=== PATIENT | male | born 1955 | race Caucasian/White ===

== ENCOUNTER → 2017-09-06 14:31 | Outpatient (CLI) | payer OTHER, SELFPAY | PROVIDERS: Visit Provider Physician Assistant Surgical | DX: J02.9 Acute pharyngitis, unspecified (principal) | CPT/HCPCS: 87081 ==

== ENCOUNTER → 2017-12-18 17:03 | Outpatient (CLI) | payer OTHER, SELFPAY | PROVIDERS: Family Provider Internal Medicine; PCP Internal Medicine; Visit Provider Internal Medicine | DX: J44.9 Chronic obstructive pulmonary disease, unspecified (principal) | CPT/HCPCS: G0297 ==

== ENCOUNTER → 2018-09-18 06:22 | Outpatient (CLI) | payer OTHER, SELFPAY ==
--- NOTE | 2018-09-18 06:29 | ECHOCS_ITS ---
Reason For Study: EDEMA OF EXTREMITIES Procedure This was a 2D Doppler, Color Flow transthoracic echocardiogram. The study was technically difficult. Due to body habitus. Contrast injection was performed. Exam performed in department. Left Ventricle Normal LV size. Left ventricular systolic function is normal. The estimated ejection fraction is 55 %. Stage 1 diastolic dysfunction. No regional wall motion abnormalities noted. Right Ventricle Normal RV size. Normal systolic function. Atria The left atrium is mildly enlarged. Normal right atrium. Mitral Valve Normal mitral valve. Tricuspid Valve Normal tricuspid valve. Aortic Valve The aortic valve is not well visualized. Pulmonic Valve Normal pulmonic valve. Great Vessels Normal aortic root. The pulmonary artery is normal size. Normal inferior vena cava. Pericardium/Pleural No pericardial effusion. Medication Diluted definity 3.0ml given slow IV push to enhance endocardial definition. MMode/2D Measurements & Calculations LVIDd: 6.3 cm IVSd: 1.2 cm Ao root diam: 3.8 cm LVIDs: 4.2 cm LVPWd: 1.1 cm RVDd: 4.0 cm FS: 32.5 % LAV(MOD-bp): 77.6 ml LA A4 area: 21.6 cm2 LA dimension(2D): 4.2 cm LAV(MOD-bp) Indexed: 30.9 ml/m2 LAV(MOD-sp2): 80.1 ml LAV(MOD-sp4): 68.0 ml RA A4 area: 20.4 cm2 Time Measurements MV dec time: 0.23 sec Doppler Measurements & Calculations MV E max robert: 72.5 cm/sec Lat Peak E' Robert: 5.0 cm/sec Med Peak E' Robert: 5.0 cm/sec MV A max robert: 85.0 cm/sec E/E' lat: 14.6 E/E' med: 14.6 MV E/A: 0.85 Ao V2 max: 130.6 cm/sec LV V1 max: 95.2 cm/sec PA V2 max: 96.0 cm/sec Ao max P.8 mmHg LV V1 max P.6 mmHg TR max robert: 220.7 cm/sec TR max P.5 mmHg Interpretation Summary Normal LV size. Left ventricular systolic function is normal. The estimated ejection fraction is 55 %. Stage 1 diastolic dysfunction. Contrast injection was performed. Ordering Physician: Shelby Eagle Referring Physician: Shelby Eagle Performed By: Ilene Collazo RDCS, RVT
--- NOTE | 2018-09-18 13:00 | STRESSREP ---
Stress Test Report Pharmacologic myocardial perfusion stress test. 63-year-old man with a history of chest pain. Stress protocol: Resting EKG demonstrates normal sinus rhythm with a rate of 63 bpm normal intervals are noted resting blood pressure 148/90 mmHg. 0.4 mg of regadenoson was infused per usual protocol followed by rapid intravenous saline flush injection continuous EKG monitoring was performed. The patient maintained sinus rhythm throughout the recording. The maximum heart rate attained was 83 bpm which was 53% of maximum predicted heart rate. The maximum workload was 1 metabolic equivalent. At rest there were no ST or T wave changes noted suggest abnormal flow reserve. The resting blood pressure was 148/90 with a peak blood pressure 158/94 mmHg. Myocardial perfusion protocol. 14.3 mCi of technetium 99m sestamibi was injected at rest. 0.4 mg of regadenoson was infused per usual protocol peak infusion 44.6 mCi of technetium 99m sestamibi was injected stress images were obtained stress and rest images were reconstructed and compared in the short axis vertical long and horizontal long axis. Gated images were also obtained Perfusion SPECT analysis: Reason of the stress images demonstrate an upper normal cardiac silhouette size. There is mild reduction of perfusion noted in the mid anterior wall on the stress images with mild reduction also in the mid inferior wall. The resting images demonstrate improvement. Small amount of mid inferior ischemia cannot be excluded. Anterior attenuation artifact is also possible. Small mid anterior ischemia can also not be excluded. Gated SPECT analysis: The gated ejection fraction is noted to be 50%. Conclusion: Pharmacologic myocardial perfusion stress test with possible mild mid inferior ischemia. Small mid anterior ischemic zone cannot be excluded. Mild cardiomyopathy present.
--- NOTE | 2018-09-18 13:31 | PFT ---
INTRODUCTION: The patient is a 63-year-old male that presents for pulmonary function studies secondary to a diagnosis of COPD. Respiratory therapy reports good patient effort. Bronchodilators were used during testing. INTERPRETATION: Forced expiration spirometry demonstrates no evidence of a large airways obstructive ventilatory defect. There was no significant response to aerosolized bronchodilators. Spirograms are of good quality and plateau normally. Body plethysmography was performed and reveals lung volumes to be within normal limits. Diffusing capacity by single breath CO is within normal limits at 95% of predicted. There is flattening of the patient's inspiratory flow volume loop which could be suggestive of a variable extrathoracic obstruction. IMPRESSION: Normal spirometry, lung volumes and diffusing capacity.
== END ==
PROVIDERS: Family Provider Internal Medicine; PCP Internal Medicine; Referring Provider Internal Medicine; Visit Provider Internal Medicine
DX: R07.89 Other chest pain (principal); R60.0 Localized edema
CPT/HCPCS: 78452; 93017; 93306; 94060; 94726; 94729; A9500; Q9957; A4216; C8929; J2785

== ENCOUNTER → 2018-09-23 16:23 | Outpatient (CLI) | payer OTHER, SELFPAY ==
[2018-09-23 14:31] VITALS: BMI 32.5
[2018-09-23 17:06] LABS: Absolute Lymphocyte Count 1.62 X10^3/ul (0.83-4.51); Absolute Neutrophil Count 3.6 X10^3/uL (2.0-7.7); Basophil# 0.01 X10^3/uL; Basophil% 0.2 % (0-1); Eosinophil# 0.04 X10^3/uL; Eosinophils% 0.7 % (0-5); Hematocrit 43.9 % (40-54); Hemoglobin 15.1 g/dl (13.0-16.5); Lymphocyte # 1.62 X10^3/ul (4.0); Lymphocyte % 28.5 % (19-41); Mean Corp Hgb Conc 34.4 g/gl (32-36); Mean Corpuscular Hgb 31.8 pg (27.0-32.0); Mean Corpuscular Volume 92.4 fL (80-94); Mean Platelet Vol. 10.8 fl (6.2-12.0); Monocyte# 0.37 X10^3/uL; Monocyte% 6.5 % (0-10); Neutrophil # 3.63 X10^3/uL (2.7-7.7); Neutrophil % 63.9 % (47-70); Platelet Count 154 K/mm3 (150-450); RBC Distribution Width CV 12.9 % (11.6-14.6); Red Blood Count 4.75 M/mm3 (4.6-6.2); White Blood Count 5.7 K/mm3 (4.4-11.0)
[2018-09-23 17:07] LABS: POSITIVE COUNT NO; POSITIVE DIFFERENTIAL NO; POSITIVE MORPHOLOGY NO
[2018-09-23 17:31] LABS: Anion Gap 3 (5-15); BUN 18 mg/dL (7-18); BUN/Creat Ratio 17.8 RATIO (10-20); Chloride 106 mmol/L (98-107); Creatinine, Serum 1.01 mg/dL (0.70-1.30); EST Glomerular Filtration Rate 79 mL/min (>60); Est Glom Filt Rate - Afr Amer 96 mL/min (>60); Glucose 109 mg/dL (74-106); Potassium 3.9 mmol/L (3.5-5.1); Sodium Level 137 mmol/L (136-145)
== END ==
PROVIDERS: Family Provider Internal Medicine; PCP Internal Medicine; Referring Provider Internal Medicine Cardiovascular Disease; Visit Provider Internal Medicine Cardiovascular Disease
DX: R94.39 Abnormal result of other cardiovascular function study (principal); F17.200 Nicotine dependence, unspecified, uncomplicated; I10 Essential (primary) hypertension; E78.5 Hyperlipidemia, unspecified
CPT/HCPCS: 36415; 80048; 85025

== ENCOUNTER 2018-09-25 06:48 | Day surgery (SDC) | payer OTHER, SELFPAY ==
[2018-09-23 14:31] VITALS: BMI 32.5
--- NOTE | 2018-09-23 16:15 | RAD_ITS ---
STUDY: X-RAY CHEST REASON FOR EXAM: Male, 63 years old. Preop cardiac catheterization TECHNIQUE: PA and lateral views of the chest. COMPARISON: None. FINDINGS: The lungs are clear and expanded. Slight elevation right hemidiaphragm. Normal size heart. Normal mediastinum and duane. Normal visualized pulmonary arteries. Normal visualized aortic arch and descending thoracic aorta. Normal visualized thoracic spine. Normal visualized ribs, clavicles, and shoulders. There is no demonstrated abnormality of the visualized soft tissue structures of the upper abdomen. RAD/Chest PA and Lateral IMPRESSION: No active disease. Electronically Signed: Anton De La Rosa MD at 16:31 EDT Tel , Service support ,
[2018-09-24 09:24] VITALS: BMI 32.5
--- NOTE | 2018-09-25 08:19 | CL.D_ITS ---
Patient Name: TRUMAN PAYTON Study Date: 09/25/2018 Performing: Ambrosio Bran MD Ht: 77.16 inches 196 cm : 1955 Wt: 275.58 lbs 125 kg Age: 63 Gender: male BSA: 2.57 PROCEDURE(S) PERFORMED GG09-[id number]/COR/LV CLINICAL PROFILE AND INDICATIONS Indications: Suspected CAD Heart Failure: None Stress/Imaging Stress/Image Study Performed: No CAD Presentations: Symptom unlikely to be ischemic. CONCLUSIONS Normal coronary arteries Normal LV size, wall motion,and systolic function RECOMMENDATIONS Medical therapy DESCRIPTION OF PROCEDURE The patient arrived to the procedure lab. The risks and benefits of the procedure as well as a full d escription of our services here and current unavailability of surgical backup were fully explained to the patient and/or their significant other prior to the catheterization. The Timeout was completed, verifying the correct patient and procedure. The patient's procedural site was prepped and draped in the usual fashion. Local anesthetic was given subcutaneously to right radial region with Lidocaine 2% . Using a modified Seldinger technique, arterial access was obtained via the right radial artery, a 6 Fr sheath was inserted. Left Coronary Artery selective angiography was performed in multiple views u sing a 5 Fr. 4.0 [place] catheter. Right Coronary Artery selective angiography was then performed in mu ltiple views using a 5 Fr. 4.0 [place] catheter. Left Ventriculography was performed in CORREA projection using a 5 Fr. Pigtail catheter. LV to AO pullback pressures were then recorded.The arterial sheath was pulled and a TR Band was applied for hemostasis CORONARY ANGIOGRAPHY DOMINANCE: Right Dominant LEFT HEART ASSESSMENT Left Ventricular Ejection Fraction: by LV Gram 60 % Normal LV wall motion Normal Left Ventricular systolic function LEFT MAIN: Angiographically normal LEFT ANTERIOR DESCENDING ARTERY: Angiographically normal CIRCUMFLEX ARTERY: Angiographically normal RIGHT CORONARY ARTERY: Angiographically normal COMPLICATIONS No Complications PROCEDURE MEDICATIONS Fentanyl 50 mcg IV Versed 1 mg IV Oxygen: 2 L/min via nasal cannula Heparin given IA 09/25/2018 07:59:27 Verapamil 2.5mg, Ntg 100mcgs, 2000 units of Heparin given IA 09/25/2018 07:59:27 SUMMARY OF HEMODYNAMIC DATA Time AIR REST ECG 07:07:28 AO 121/78 (99) SA 08:01:58 LV 123/7, 14 08:08:53 LV 130/10, 26 08:09:01 LV 128/0, 15 08:10:05 LV 134/0, 15 08:10:11 LVp 131/1, 19 08:10:23 AOp 132/73 (96) 08:10:28 Signed By Ambrosio Bran MD On 09/25/2018 08:18:19 Ambrosio Bran MD
== END 2018-09-25 10:30 | disposition home or self-care (01) ==
LOC: CLSP 06:49
PROVIDERS: Family Provider Internal Medicine; PCP Internal Medicine; Referring Provider Internal Medicine Cardiovascular Disease; Visit Provider Internal Medicine Cardiovascular Disease
DX: R94.39 Abnormal result of other cardiovascular function study (principal); I10 Essential (primary) hypertension; E78.5 Hyperlipidemia, unspecified; J44.9 Chronic obstructive pulmonary disease, unspecified; E03.9 Hypothyroidism, unspecified; G47.33 Obstructive sleep apnea (adult) (pediatric); E66.9 Obesity, unspecified; E11.9 Type 2 diabetes mellitus without complications; F17.200 Nicotine dependence, unspecified, uncomplicated; Z68.32 Body mass index [BMI] 32.0-32.9, adult
CPT/HCPCS: 71046; 93458; 99152; 99153; J7040; Q9967; C1769; C1894

== ENCOUNTER → 2019-02-09 08:00 | Outpatient (CLI) | payer OTHER, SELFPAY ==
[2018-09-24 09:24] VITALS: BMI 32.5
--- NOTE | 2019-02-09 08:00 | PROSBIL_PTH ---
PATIENT: TRUMAN PAYTON LOC: JR U#:[id number] AGE/SX: 69/M ROOM: RE02/09/[address]: Dr. Andrew Huertas MD : 1955 BED: DIS: SPEC #: [id number] RECD: 02/09/19 17:18 STATUS: ESPERANZA REECE #: [id number] LISA: 02/09/19 08:[address]: Andrew Huertas DEPT: SURGICAL PATHOLOGY RECD BY: Vishnu Jacobo ENTERED: 02/10/19 08:04 SP TYPE: PROST BX ODELL DR: Dr. Shelby Eagle DO Tissues: A - PROSTATE RIGHT B - PROSTATE RIGHT C - PROSTATE RIGHT D - PROSTATE LEFT E - PROSTATE LEFT F - PROSTATE LEFT Procedures: PROSTATE BX HEADER OPERATION: Prostate biopsy PRE-OP DIAGNOSIS: Elevated PSA TISSUE SUBMITTED: A - Right apex, B - Right mid, C - Right base, D - Left apex, E - Left mid, F - Left base MICROSCOPIC DIAGNOSIS A. Right prostate, apex, core biopsy: Prostatic tissue, negative for malignancy. B. Right prostate, mid, core biopsy: Prostatic tissue, negative for malignancy. Focal atrophy. C. Right prostate, base, core biopsy: Prostatic tissue, negative for malignancy. Focal atrophy and mild chronic inflammation. D. Left prostate, apex, core biopsy: Prostatic tissue, negative for malignancy. Focal atrophy and mild chronic inflammation. E. Left prostate, mid, core biopsy: Focal minimal high-grade prostatic intraepithelial neoplasia (HGPIN). F. Left prostate, base, core biopsy: Prostatic tissue, negative for malignancy. SJ:ramo 02/11/19 MICROSCOPIC DESCRIPTION Slides are reviewed. GROSS DESCRIPTION A - Received is one container designated prostate, right apex. The specimen consists of two elongated fragments of light paz-white soft tissue measuring 1 and 1.2 cm in length and 0.1 cm in diameter. The specimen is totally submitted in one cassette. B - Received is one container designated prostate, right mid. The specimen consists of two elongated fragments of light paz-white soft tissue measuring 0.3 and 1.5 cm in length and 0.1 cm in diameter. The specimen is totally submitted in one cassette. C - Received is one container designated prostate, right base. The specimen consists of two elongated fragments of light paz-white soft tissue measuring 1 and 1.2 cm in length and 0.1 cm in diameter. The specimen is totally submitted in one cassette. D - Received is one container designated prostate, left apex. The specimen consists of two elongated fragments of light paz-white soft tissue measuring 0.8 x 1.2 cm in length and 0.1 cm in diameter. The specimen is totally submitted in one cassette. E - Received is one container designated prostate, left mid. The specimen consists of two elongated fragments of light paz-white soft tissue measuring 1 and 1.1 cm in length and 0.1 cm in diameter. The specimen is totally submitted in one cassette. F - Received is one container designated prostate, left base. The specimen consists of three elongated fragments of light paz-white soft tissue measuring 0.4 to 1 cm in length and 0.1 cm in diameter. The specimen is totally submitted in one cassette. / SJ:rg 02/10/19 TC:5 CPT: 32111 x6
== END ==
PROVIDERS: Family Provider Internal Medicine; PCP Internal Medicine; Referring Provider Urology; Visit Provider Urology
DX: R97.20 Elevated prostate specific antigen [PSA] (principal)
CPT/HCPCS: 88305; G0416

== ENCOUNTER → 2021-03-15 08:38 | Outpatient (CLI) | payer BC, SELFPAY ==
--- NOTE | 2021-03-15 10:54 | NEURO ---
NCS and/or EMG Patient Report Ordering Doctor: Shelby Eagle DATE OF SERVICE: 03/15/21 Joe presents for electrodiagnostic testing of the lower limbs. Reports numbness and tingling in both feet. Electrodiagnostic findings:Peroneal motor nerve demonstrates normal distal latency, amplitude bilaterally with reduced conduction velocity. Reduced tibial motor conduction velocity noted bilaterally. Prolonged sural latency bilaterally. Prolonged left superficial peroneal latency. Absent left medial plantar response. H reflex prolonged bilaterally. F waves are prolonged bilaterally. On needle EMG, all muscles tested in the lower limbs showed no evidence of denervation with normal motor unit action potentials. Electrodiagnostic impression: This is an abnormal study in the lower limbs 1. Electrodiagnostic findings suggestive of peripheral polyneuropathy, with motor and sensory nerve involvement. Etiology of the condition is unknown.
== END ==
PROVIDERS: PCP Internal Medicine; Referring Provider Internal Medicine; Visit Provider Internal Medicine
DX: R20.2 Paresthesia of skin (principal)
CPT/HCPCS: 95886; 95912

== ENCOUNTER → 2022-04-24 | Outpatient (CLI) | payer BC, SELFPAY ==
[2022-04-24 12:58] LABS: Vitamin B12 491 pg/mL (211-911)
[2022-04-26 00:06] LABS: Free Kappa Light Chains 15.9 mg/L (3.3-19.4); Free Lambda Light Chains 11.8 mg/L (5.7-26.3)
== END | disposition home or self-care (01) ==
PROVIDERS: PCP Internal Medicine; Referring Provider Psychiatry & Neurology Neurology; Visit Provider Psychiatry & Neurology Neurology
DX: G62.9 Polyneuropathy, unspecified (principal)
CPT/HCPCS: 36415; 82607; 83883

== ENCOUNTER 2023-08-28 07:15 | Outpatient (CLI) | payer BC, SELFPAY ==
--- NOTE | 2023-08-28 07:18 | CT_ITS ---
STUDY: LOW DOSE CT LUNG CANCER SCREENING REASON FOR EXAM: Male, 68 years old. Tobacco Use RADIATION DOSAGE (If Supplied By Facility): CTDIvol = ( 4.02 ) mGy, DLP = ( 145.47 ) mGycm TECHNIQUE: No contrast was administered. Low dose technique was utilized (average mAS-38 and kVp 120). 1.25 mm axial source images with a slice interval of 1.25-mm were reconstructed in lung windows. 2.5 mm axial source images with a slice interval of 2.5-mm were reconstructed in lung windows. 5.0 mm axial source images with a slice interval of 5.0-mm were reconstructed in soft tissue windows. COMPARISON: None. NODULES: Stable 2 mm calcified granuloma in the lateral aspect of the right upper lobe as seen on axial image #77. Stable 3 mm x 3 mm noncalcified nodule in the lateral pleural-based right lower lobe. Emphysema: Mild emphysematous changes. Endobronchial lesion: Unremarkable Aorta: Mild atherosclerotic plaque formation of the aortic arch. CORONARY ARTERIES: Coronary artery calcification is seen. Heart: Unremarkable Pulmonary artery: Unremarkable Mediastinal nodes: Unremarkable Other chest and abdominal findings: CT/Low Dose CT Lung Screening IMPRESSION: Lung-RADS category 2 - Continue annual screening with LDCT in 12 months. IMPORTANT NOTES FOR USE: ACR Lung-RADS Version 1.1 Assessment Categories Release Date: 2018 Category: Coded 0-4 bases on nodule(s) with highest degree of suspicion. Negative screen is defined as categories 1 and 2; a positive screen is defined as categories 3 and 4. Category 3 and 4A nodules that are unchanged on interval CT should be coded as category 2, and individuals returned to screening in 12 months. Category 4X: Category 3 or 4 nodules with additional imaging findings that increase the suspicion of lung cancer, such as spiculation, GGN that doubles in size in 1 year, enlarged lymph notes, etc. Category Modifiers: S (significant finding unrelated to lung cancer) Electronically Signed: Bernabe Randolph MD at 14:49 EDT ,
--- NOTE | 2023-08-28 07:19 | CT_ITS ---
STUDY: CT CHEST WITHOUT CONTRAST REASON FOR EXAM: Male, 68 years old. 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 Individualized dose optimization techniques were used for this CT. COMPARISON: Comparison is made with prior CT scan of the chest done earlier today. FINDINGS: CHEST Mild degree of emphysematous change. There is no demonstrated pleural abnormality. There are calcifications of the coronary arteries. Calcified splenic granuloma. CT/Limited Chest CT Cardiac Only IMPRESSION: Coronary artery calcification. Calcification of the aortic arch. Electronically Signed: Bernabe Randolph MD at 14:54 EDT ,
--- NOTE | 2023-09-15 15:48 | CA.SCORE ---
Calcium Scoring Date of Study:: 08/28/23 Indications Indications: Uncontrolled DB Coronary Calcium Scoring: High-resolution Computed Tomographic imaging of the chest was performed on [08/28/23 ], with particular attention paid to the coronary arteries. Images from the examination were analyzed for the presence and extent of coronary artery calcification , using coronary calcium quantification software. The patient tolerated the procedure well and there were no complications. The results of the coronary calcification analysis are provided below. Findings Coronary Artery Left Main (LM): 101 Left Anterior Descending (LAD): 189 Left Circumflex (LCX): 121 Right Coronary Artery (RCA): 185 Total Agatston Score: 596 Percentile Rankin%-90% Calcium Scoring Interpretation: Different methods to categorize the overall amount of coronary plaque. Overall amount CAC SIS Visual of coronary plaque P1 Mild -100 <2 1-2 vessels with mild amount of plaque P2 Moderate 101-300 3-4 1-2 vessels with moderate amount, 3 vessels with mild amount of plaque P3 Severe 301-999 5-7 3 vessels with moderate amount, 1 vessel with severe amount of plaque P4 Extensive >1000 >8 2-3 vessels with severe amount of plaque Calcium Score: Severe: 3 vessels w/moderate amount, 1 vessel w/severe amt of plaque Conclusion: Three-vessel moderate disease noted.
== END 2023-08-28 23:59 | disposition home or self-care (01) ==
PROVIDERS: PCP Internal Medicine; Referring Provider Internal Medicine; Visit Provider Internal Medicine
DX: F17.210 Nicotine dependence, cigarettes, uncomplicated (principal); E11.40 Type 2 diabetes mellitus with diabetic neuropathy, unspecified; R91.8 Other nonspecific abnormal finding of lung field
CPT/HCPCS: 71271; 75571; 76380

== ENCOUNTER → 2023-11-01 | Outpatient (CLI) | payer BC, SELFPAY ==
--- NOTE | 2023-11-01 13:38 | STRESSREP_ITS ---
Stress Test Report JAEN STRESS Date: 11/01/2023 ? Procedure: Pharmacologic stress nuclear imaging study?? ? Indications: CAD ? Consent: Per the patient ? Procedure: ? The patient underwent pharmacologic (Regadenoson 0.4mg ) evaluation with a peak heart rate of 70 beats per minute (46%predicted maximal heart rate) and a peak blood pressure of 132/70 mmHg. ? The baseline ECG demonstrated sinus rhythm.? The peak pharmacologic ECG demonstratedno ischemic changes. ? There were no cardiac dysrhythmias pretest, during pharmacologic infusion, or recovery. ? There was no complaint of chest discomfort during pharmacologic infusion or recovery. ? The patient was injected with 14.6 millicuries of technetium 99m Cardiolite and subsequently rest SPECT Cardiolite nuclear imaging was obtained in the horizontal long, vertical long, and short axis views. The patient underwent pharmacologic (Regadenoson) evaluation. The patient was injected with 44.5 millicuries of technetium 99m Cardiolite and subsequently stress SPECT Cardiolite nuclear imaging was obtained in the horizontal long, vertical long, and short axis views.? A gated Cardiolite study at peak stress was obtained. ? The examination was stopped secondary to completion of protocol. ? Rest and stress SPECT Cardiolite nuclear imaging status post realignment, n ormalization, and attenuation correction demonstrate no fixed or reversible perfusion defects. There is end systolic thickening and brightening. The gated Cardiolite study demonstrates myocardial thickening and inward wall motion.? The reported LVEF is 54%. ? Impression: ? 1.? Pharmacologic (Regadenoson) evaluation 2.? Peak pharmacologic ECG with no ischemic changes. 3. There were no cardiac dysrhythmias pretest, during pharmacologic infusion, or recovery. 5. Rest and stress SPECT Cardiolite nuclear imaging demonstrate relative uniform tracer uptake and myocardial perfusion appearing within normal limits. 6.? The gated Cardiolite study reports an LVEF of 54%.
== END | disposition home or self-care (01) ==
PROVIDERS: PCP Internal Medicine; Referring Provider Internal Medicine; Visit Provider Internal Medicine
DX: R93.1 Abnormal findings on diagnostic imaging of heart and coronary circulation (principal)
CPT/HCPCS: 78452; 93017; A9500; A4216; J2785

== ENCOUNTER → 2025-01-19 | Outpatient (CLI) | payer BC, SELFPAY ==
--- NOTE | 2025-01-19 17:02 | CT_ITS ---
PROCEDURE: LOW DOSE CT LUNG SCREENING 01/19/2025 REASON FOR EXAM: PERSONAL HISTORY OF NICOTINE DEPENDENCE TECHNIQUE: Procedure Code: [id number] Modality: CT Procedure: LOW DOSE CT LUNG SCREENING Low Dose CT Lung screening without contrast. Coronal and Sagittal reconstruction series were provided. One or more dose reduction techniques were used (e.g., Automated exposure control, adjustment of the mA and/or kV according to patient size, use of iterative reconstruction technique). REFERENCE LINK: [employer] Lung-RADS RADIATION DOSE SUMMARY: CTDlvol: 4.0 mGy DLP: 136.9 mGycm COMPARISON: 08/28/2023 FINDINGS: PULMONARY NODULES: (Only nodules >3mm are reported) Nodules described below are on series 2 unless otherwise specified. Pulmonary Nodules: Stable 3 mm pleural-based nodule image 150. Hardware:None Lymph Nodes:Unremarkable Heart and Vasculature:Normal heart size. Coronary Artery Calcifications: Present Lungs and Airways: Mild emphysematous changes are present. Pleura:Unremarkable Upper Abdomen:Fatty liver. Bones:Degenerative changes of the thoracic spine. CT/Low Dose CT Lung Screening IMPRESSION: No new suspicious pulmonary nodules. Coronary artery calcification (CAC) is is present Lung-RADS Category: 2 BENIGN (BASED ON IMAGING FEATURES OR INDOLENT BEHAVIOR). RECOMMEND 12-MONTH SCREENING LDCT. Reading Location: [id number]
== END | disposition home or self-care (01) ==
PROVIDERS: PCP Internal Medicine; Referring Provider Internal Medicine Pulmonary Disease; Visit Provider Internal Medicine Pulmonary Disease
DX: Z12.2 Encounter for screening for malignant neoplasm of respiratory organs (principal); Z87.891 Personal history of nicotine dependence
CPT/HCPCS: 71271

== ENCOUNTER → 2025-03-23 | Outpatient (CLI) | payer BC, SELFPAY ==
[2025-03-23 08:08] LABS: Mucous, Urine 0 SEEN /hpf (<or=2+); Red Blood Cells-Urine 0 SEEN /hpf (0-5); Squamous Epithelial Cells - UA 0 SEEN /hpf (0-5)
[2025-03-23 10:35] LABS: Color, Urine Yellow (Yellow); Glucose, Dipstick Normal (Normal); Ketone-Dipstick Negative (Negative); Leukocyte Esterase-Dipstick Negative /ul (Negative); Nitrite-Dipstick Negative (Negative); Occult Blood-Urine Negative /ul (Negative); Protein-Dipstick 15 mg/dl (Negative); Specific Gravity, Urine 1.020 (1.002-1.030); Urine Bilirubin Dipstick Negative (Negative)
[2025-03-23 10:59] LABS: Hematocrit 42.9 % (40-54); Hemoglobin 14.2 g/dL (13.0-16.5); Immature Granulocytes Count 0.010 X10^3/uL (0.0-0.0); Mean Corp Hgb Conc 33.1 g/dL (32-36); Mean Corpuscular Volume 94.5 fL (80-94); Mean Platelet Vol. 10.8 fl (6.2-12.0); NRBC Flagged by Analyzer 0 % (0-5); Platelet Count 172 K/mm3 (150-450); RBC Distribution Width CV 12.8 % (11.6-14.6); RBC Distribution Width SD 44.1 fl (35.1-43.9); Red Blood Count 4.54 M/mm3 (4.6-6.2); White Blood Count 5.2 K/mm3 (4.4-11.0)
[2025-03-23 12:00] LABS: AST(SGOT) 26 U/L (<=37); Alanine Aminotransfer ALT/SGPT 43 U/L (<=46); Albumin, Serum 4.5 g/dL (3.4-4.8); Alkaline Phosphatase 48 U/L (40-129); Anion Gap 10 (5-15); BUN 17 mg/dL (4-19); BUN/Creat Ratio 16.3 RATIO (10-20); Calcium,Total 9.5 mg/dL (7.6-11.0); Carbon Dioxide 27.2 mmol/L (21.0-32.0); Chloride 105 mmol/L (98-108); Cholesterol 151 mg/dL (<=200); Globulin 2.5 g/dL (2.2-4.2); Glucose 144 mg/dL (70-99); Low Density Lipoprotein Calc. 85 mg/dL; Potassium 4.0 mmol/L (3.3-5.1); Triglycerides 142 mg/dL; Very Low Density Lipoprotein 28 mg/dL (5-40); Vitamin D,25 Hydroxy 57.0 ng/mL (30-100); cholesterol:hdl ratio screen 3.67
[2025-03-23 13:05] LABS: Creatinine, Urine (random) 180.00 mg/dL (39.00-259.00); Microalbumin,Random Urine 41.3 mg/L (<20 mg/L)
== END | disposition home or self-care (01) ==
LOC: CIMLAB 08:06
PROVIDERS: PCP Internal Medicine; Referring Provider Internal Medicine; Visit Provider Internal Medicine
DX: E11.9 Type 2 diabetes mellitus without complications (principal); E78.00 Pure hypercholesterolemia, unspecified; R80.9 Proteinuria, unspecified; E55.9 Vitamin D deficiency, unspecified
CPT/HCPCS: 36415; 80053; 80061; 81001; 82043; 82306; 82570; 84443; 85025